=== PATIENT | male | born 1960 | race African-American/Black ===

== ENCOUNTER 2018-11-19 18:53 | Emergency (ER) | payer MEDICAID, OTHER ==
[~2018-11-19] VITALS: Ht 182.9 cm; Wt 81.6 kg
[2018-11-19 19:37] VITALS: BP 124/69
[2018-11-19 19:49] LABS: BASOPHILS # (AUTO) 0.1 /CMM (0.0-0.2); BASOPHILS % (AUTO) 1.2 % (0.0-2.0); EOSINOPHILS % (AUTO) 4.7 % (0.0-6.0); HEMATOCRIT 43 % (39-51); LYMPHOCYTES # (AUTO) 1.6 /CMM (0.8-4.8); LYMPHOCYTES % (AUTO) 35.7 % (20.0-44.0); MEAN CORPUSCULAR HGB CONC 33 g/dl (31.0-36.0); MEAN CORPUSCULAR VOLUME 85 fL (80-96); MONOCYTES # (AUTO) 0.3 /CMM (0.1-1.30); MONOCYTES % (AUTO) 7.8 % (2.0-12.0); NEUTROPHILS # (AUTO) 2.2 /CMM (1.8-8.9); NEUTROPHILS % (AUTO) 50.6 % (43.0-81.0); PLATELET COUNT (AUTO) 260 /CMM (150-450); RED BLOOD CELL COUNT(AUTO) 5.09 MIL/uL (4.5-6.0); WHITE BLOOD COUNT (AUTO) 4.4 K/uL (4.3-11.0)
[2018-11-19 19:51] LABS: APPEARANCE,URINE Clear (CLEAR); BILIRUBIN,URINE Negative (NEGATIVE); BLOOD, URINE Negative Ery/uL (NEGATIVE); COLOR,URINE Yellow (YELLOW); KETONES,URINE Negative (NEGATIVE); LEUKOCYTE ESTERASE ,URINE Negative (NEGATIVE); NITRITE, URINE Negative (NEGATIVE); PROTEIN,URINE Negative (NEGATIVE); UGLUCOSE Negative (NEGATIVE); UROBILINOGEN,URINE 0.2 EU/dL (0.2)
[2018-11-19 19:57] LABS: CALCIUM, SERUM 8.4 mg/dL (8.5-10.1); CARBON DIOXIDE 26 mmol/L (21-32); CHLORIDE 105 mmol/L (98-107); CREATININE 1.3 mg/dL (0.6-1.3); GLUCOSE 128 mg/dL (74-106); POTASSIUM 4.2 mmol/L (3.5-5.1); SODIUM SERUM 142 mmol/L (136-145); UREA NITROGEN, BLOOD 22 mg/dL (7-18)
[2018-11-19 20:10] LABS: ALANINE AMINOTRANSFERASE 41 U/L (12-78); ALKALINE PHOSPHATASE 75 U/L (46-116); ASPARTATE AMINOTRANSFERASE 29 U/L (15-37); BILIRUBIN,TOTAL 0.2 mg/dL (0.2-1.0); TOTAL PROTEIN, SERUM 6.3 g/dL (6.4-8.2)
[2018-11-19 20:13] LABS: ACETAMINOPHEN < 2 ug/ml (10-30); ALCOHOL, BLOOD < 3 mg/dL (0-0); SALICYLATE < 2.8 mg/dL (2.8-20.0)
--- NOTE | 2018-11-19 23:22 | NUR ---
CALLED SPOKE TO [facility]. PLEASE CALL WITH UPDATE ON PATIENT CONDITION. # [phone]. PT WILL WAIT UNTIL 1230 IN THE AFTERNOON FOR OPENING AT [facility].
--- NOTE | 2018-11-20 00:46 | NUR ---
SPOKE WITH INTAKE AT [facility]. AWARE THAT PT LEFT AMA. PT DENIED SI AND HI. AMBULATORY.
--- NOTE | 2018-11-20 00:58 | NUR ---
PT REFUSED TO SIGN AMA PAPERWORK. MD MONET
== END 2018-11-20 01:00 | disposition left against medical advice (07) ==
LOC: ER 18:59
DX: R45.851 Suicidal ideations (principal); Z59.0 Homelessness
CPT/HCPCS: 36415; 80048; 80076; 80305; 80307; 80329; 81001; 85025; 99284; G0480; 81000-TC

== ENCOUNTER 2018-12-07 18:58 | Emergency (ER) | payer MEDICAID ==
[~2018-12-07] VITALS: Ht 175.3 cm; Wt 68.0 kg
[2018-12-07 19:47] VITALS: BP 117/71
--- NOTE | 2018-12-07 19:50 | NUR ---
PT TO ER C/O SI WITH PLAN TO JUMP OFF BRIDGE. SI PRECUATIONS IMPLEMENTED. NO SIGNS OF DISTRESS NOTED. PT VITAL SIGNS STABLE. PT TO ER BED, CHANGED INTO GOWN. WILL CONT TO MONITOR PT.
[2018-12-07] MEDS ORDERED: LORAZEPAM 1 MG TABLET PO ONE (20:00)
[2018-12-07] MEDS ORDERED: OLANZAPINE 5 MG TABLET PO ONE (20:00)
--- NOTE | 2018-12-07 20:03 | NUR ---
URINE COLLECTED AND SENT TO LAB
--- NOTE | 2018-12-07 20:06 | NUR ---
PHLEB AT BEDSIDE FOR LAB DRAW
[2018-12-07] MEDS ORDERED: LORAZEPAM 1 MG TABLET ONE (20:07)
[2018-12-07] MEDS ORDERED: OLANZAPINE 5 MG TABLET ONE (20:07)
--- NOTE | 2018-12-07 20:12 | NUR ---
PT MEDICATED ORDERED. FOOD AND DRINK PROVIDED TO PATIENT.
[2018-12-07 20:13] LABS: BASOPHILS # (AUTO) 0.1 /CMM (0.0-0.2); EOSINOPHILS % (AUTO) 4.3 % (0.0-6.0); HEMATOCRIT 38 % (39-51); HEMOGLOBIN 12.4 g/dL (13.5-17.5); LYMPHOCYTES # (AUTO) 1.5 /CMM (0.8-4.8); LYMPHOCYTES % (AUTO) 26.4 % (20.0-44.0); MEAN CORPUSCULAR HGB CONC 33 g/dl (31.0-36.0); MEAN CORPUSCULAR VOLUME 84 fL (80-96); MONOCYTES # (AUTO) 0.5 /CMM (0.1-1.30); MONOCYTES % (AUTO) 8.8 % (2.0-12.0); NEUTROPHILS # (AUTO) 3.3 /CMM (1.8-8.9); NEUTROPHILS % (AUTO) 59.5 % (43.0-81.0); PLATELET COUNT (AUTO) 326 /CMM (150-450); RED BLOOD CELL COUNT(AUTO) 4.55 MIL/uL (4.5-6.0); WHITE BLOOD COUNT (AUTO) 5.5 K/uL (4.3-11.0)
[2018-12-07 20:14] LABS: APPEARANCE,URINE Clear (CLEAR); BILIRUBIN,URINE Negative (NEGATIVE); BLOOD, URINE Negative Ery/uL (NEGATIVE); COLOR,URINE Dark (YELLOW); KETONES,URINE Negative (NEGATIVE); LEUKOCYTE ESTERASE ,URINE Negative (NEGATIVE); NITRITE, URINE Negative (NEGATIVE); PH,URINE 5.5 (5.0-8.0); PROTEIN,URINE Trace mg/dl (NEGATIVE); UGLUCOSE Negative (NEGATIVE); UROBILINOGEN,URINE 0.2 EU/dL (0.2)
[2018-12-07 20:21] LABS: CALCIUM, SERUM 8.6 mg/dL (8.5-10.1); CARBON DIOXIDE 27 mmol/L (21-32); CHLORIDE 104 mmol/L (98-107); CREATININE 1.4 mg/dL (0.6-1.3); GLUCOSE 110 mg/dL (74-106); POTASSIUM 4.1 mmol/L (3.5-5.1); SODIUM SERUM 139 mmol/L (136-145); UREA NITROGEN, BLOOD 31 mg/dL (7-18)
[2018-12-07 20:27] LABS: ACETAMINOPHEN < 2 ug/ml (10-30); ALANINE AMINOTRANSFERASE 36 U/L (12-78); ALBUMIN 3.1 g/dL (3.4-5.0); ALCOHOL, BLOOD < 3 mg/dL (0-0); ALKALINE PHOSPHATASE 89 U/L (46-116); ASPARTATE AMINOTRANSFERASE 36 U/L (15-37); BILIRUBIN,DIRECT 0.1 mg/dL (0.0-0.2); BILIRUBIN,TOTAL 0.4 mg/dL (0.2-1.0); SALICYLATE 0.9 mg/dL (2.8-20.0); TOTAL PROTEIN, SERUM 6.6 g/dL (6.4-8.2)
--- NOTE | 2018-12-07 23:55 | NUR ---
Art case management rn at bedside for eval.
--- NOTE | 2018-12-08 02:28 | NUR ---
PT ACCEPTED TO [facility] BY DR SOL. # FOR REPORT [phone]
--- NOTE | 2018-12-08 02:42 | NUR ---
[facility] TRIP [id number] ETA [id number]
--- NOTE | 2018-12-08 04:50 | NUR ---
DAVID AT BEDSIDE FOR TRANSPORT TO [facility].
== END 2018-12-08 05:08 ==
LOC: ER 18:59
DX: R45.851 Suicidal ideations (principal); R79.89 Other specified abnormal findings of blood chemistry; Z59.0 Homelessness
CPT/HCPCS: 36415; 80048; 80076; 80305; 80307; 80329; 81001; 85025; 99285; G0480; 81000-TC

== ENCOUNTER 2018-12-13 22:33 | Emergency (ER) | payer MEDICAID, OTHER ==
[~2018-12-13] VITALS: Ht 182.9 cm; Wt 68.0 kg
--- NOTE | 2018-12-13 22:42 | NUR ---
CALLED PT IN [place], NO RESPONSE.
--- NOTE | 2018-12-13 22:59 | NUR ---
PT BIBSELF C/O SI WITH PLAN TO RUN INTO TRAFFIC. ALSO C/O AUDITORY HALLUCINATIONS. DENIES HI. PT AAOX4. RESPIRATIONS EVEN AND UNLABORED. SKIN INTACT. ABLE TO AMBULATE WITH STEADY GAIT. NO ACUTE DISTRESS NOTED AT THIS TIME.
--- NOTE | 2018-12-13 23:00 | NUR ---
VP ACCOUNT DIRECTOR AT BEDSIDE FOR BLOOD DRAW
[2018-12-13 23:06] LABS: BASOPHILS # (AUTO) 0.1 /CMM (0.0-0.2); BASOPHILS % (AUTO) 1.4 % (0.0-2.0); EOSINOPHILS % (AUTO) 5.8 % (0.0-6.0); HEMATOCRIT 39 % (39-51); HEMOGLOBIN 12.8 g/dL (13.5-17.5); LYMPHOCYTES # (AUTO) 1.8 /CMM (0.8-4.8); LYMPHOCYTES % (AUTO) 30.8 % (20.0-44.0); MEAN CORPUSCULAR HGB CONC 33 g/dl (31.0-36.0); MEAN CORPUSCULAR VOLUME 84 fL (80-96); MONOCYTES # (AUTO) 0.5 /CMM (0.1-1.30); MONOCYTES % (AUTO) 8.9 % (2.0-12.0); NEUTROPHILS # (AUTO) 3.1 /CMM (1.8-8.9); NEUTROPHILS % (AUTO) 53.1 % (43.0-81.0); PLATELET COUNT (AUTO) 304 /CMM (150-450); RED BLOOD CELL COUNT(AUTO) 4.63 MIL/uL (4.5-6.0); WHITE BLOOD COUNT (AUTO) 5.8 K/uL (4.3-11.0)
[2018-12-13 23:18] LABS: ALBUMIN 3.2 g/dL (3.4-5.0); BILIRUBIN,DIRECT 0.1 mg/dL (0.0-0.2); BILIRUBIN,TOTAL 0.3 mg/dL (0.2-1.0); CALCIUM, SERUM 8.5 mg/dL (8.5-10.1); CREATININE 1.4 mg/dL (0.6-1.3); POTASSIUM 4.1 mmol/L (3.5-5.1); TOTAL PROTEIN, SERUM 6.6 g/dL (6.4-8.2)
[2018-12-13] MEDS ORDERED: OLANZAPINE 5 MG TABLET ONE (23:26)
[2018-12-13] MEDS ORDERED: LORAZEPAM 1 MG TABLET ONE (23:26)
[2018-12-13 23:30] LABS: SALICYLATE 1.4 mg/dL (2.8-20.0)
[2018-12-13] MEDS ORDERED: OLANZAPINE 5 MG TABLET PO ONE (23:30)
[2018-12-13] MEDS ORDERED: LORAZEPAM 1 MG TABLET PO ONE (23:30)
[2018-12-14 00:27] LABS: APPEARANCE,URINE Clear (CLEAR); BILIRUBIN,URINE Negative (NEGATIVE); BLOOD, URINE Negative Ery/uL (NEGATIVE); COLOR,URINE Yellow (YELLOW); KETONES,URINE Negative (NEGATIVE); LEUKOCYTE ESTERASE ,URINE Negative (NEGATIVE); NITRITE, URINE Negative (NEGATIVE); PH,URINE 5.5 (5.0-8.0); PROTEIN,URINE Negative (NEGATIVE); UGLUCOSE Negative (NEGATIVE); UROBILINOGEN,URINE 0.2 EU/dL (0.2)
--- NOTE | 2018-12-14 01:04 | NUR ---
ART, MANAGER BAKERY AT BEDSIDE FOR PSYCH EVAL.
--- NOTE | 2018-12-14 01:45 | NUR ---
pt given sandwich and juice, sitting up in bed, eating w/ no aspiration of food noted.
--- NOTE | 2018-12-14 04:02 | NUR ---
PT RESTING COMFORTABLY IN BED. VITAL SIGNS STABLE. NO ACUTE DISTRESS NOTED AT THIS TIME. WILL CONTINUE TO MONITOR
--- NOTE | 2018-12-14 06:08 | NUR ---
PT CONTINUES TO SLEEP W/ RESP EVEN & UNLABORED, BED LOW TO GROUND W/ SIDERAILS UP FOR SAFETY, LIGHTS DIMMED FOR COMFORT. AWAITING PSYCH EVAL IN AM ONCE SOBER FOR EVAL.
--- NOTE | 2018-12-14 07:20 | NUR ---
PT SLEEPING, EASILY AROUSABLE ON MONITOR. VSS. WILL CONTINUE TO MONITOR.
--- NOTE | 2018-12-14 07:23 | NUR ---
CALLED FOR FOOD TRAY
--- NOTE | 2018-12-14 07:48 | NUR ---
DR FOSS AT BEDSIDE FOR EVAL.
--- NOTE | 2018-12-14 07:53 | NUR ---
CALLED ART [phone]
--- NOTE | 2018-12-14 12:15 | NUR ---
CALLED ART, ETA 1 HR
--- NOTE | 2018-12-14 13:25 | NUR ---
PT RESTING, VERBALLY RESPONSIVE. STABLE VITALS. AWAITING PSYCH RE EVAL.
--- NOTE | 2018-12-14 13:35 | NUR ---
ART, ASSOCIATE PUBLISHER AT BEDSIDE FOR EVAL
--- NOTE | 2018-12-14 14:13 | NUR ---
CALLED DIETARY FOR FOOD TRAY
[2018-12-14 14:35] VITALS: BP 121/74
--- NOTE | 2018-12-14 16:51 | NUR ---
TRANSPORTED TO [facility]. STABLE CONDITION.
== END 2018-12-14 16:56 ==
LOC: ER 22:38
DX: R45.851 Suicidal ideations (principal); Z59.0 Homelessness
CPT/HCPCS: 36415; 80048; 80076; 80305; 80307; 80329; 81001; 85025; 99285; G0480; 81000-TC

== ENCOUNTER 2019-05-22 00:23 | Emergency (ER) | payer OTHER ==
[~2019-05-22] VITALS: Ht 182.9 cm; Wt 80.7 kg
--- NOTE | 2019-05-22 00:30 | NUR ---
Pt to er c/o suicidal ideations with plan to jump off bridge. No immediate signs of distress noted. pt vital signs stable. Pt denies any medical complaint. Suicide precautions implemented. Belongings removed from room. Pt changed to gown. Will cont to monitor pt.
[2019-05-22 01:13] LABS: BASOPHILS # (AUTO) 0.1 /CMM (0.0-0.2); BASOPHILS % (AUTO) 1.3 % (0.0-2.0); EOSINOPHILS % (AUTO) 1.8 % (0.0-6.0); HEMATOCRIT 37 % (39-51); HEMOGLOBIN 12.1 g/dL (13.5-17.5); LYMPHOCYTES # (AUTO) 1.3 /CMM (0.8-4.8); LYMPHOCYTES % (AUTO) 22.7 % (20.0-44.0); MEAN CORPUSCULAR HGB CONC 33 g/dl (31.0-36.0); MEAN CORPUSCULAR VOLUME 82 fL (80-96); MONOCYTES # (AUTO) 0.3 /CMM (0.1-1.30); MONOCYTES % (AUTO) 5.9 % (2.0-12.0); NEUTROPHILS % (AUTO) 68.3 % (43.0-81.0); PLATELET COUNT (AUTO) 261 /CMM (150-450); RED BLOOD CELL COUNT(AUTO) 4.52 MIL/uL (4.5-6.0); WHITE BLOOD COUNT (AUTO) 5.9 K/uL (4.3-11.0)
[2019-05-22 01:20] LABS: CARBON DIOXIDE 31 mmol/L (21-32); CHLORIDE 105 mmol/L (98-107); CREATININE 1.3 mg/dL (0.6-1.3); GLUCOSE 92 mg/dL (74-106); SODIUM SERUM 141 mmol/L (136-145); UREA NITROGEN, BLOOD 18 mg/dL (7-18)
[2019-05-22 01:36] LABS: ACETAMINOPHEN 0 ug/ml (10-30); ALANINE AMINOTRANSFERASE 38 U/L (12-78); ALBUMIN 3.3 g/dL (3.4-5.0); ALCOHOL, BLOOD < 3 mg/dL (0-0); ALKALINE PHOSPHATASE 65 U/L (46-116); ASPARTATE AMINOTRANSFERASE 66 U/L (15-37); BILIRUBIN,DIRECT 0.1 mg/dL (0.0-0.2); BILIRUBIN,TOTAL 0.4 mg/dL (0.2-1.0); SALICYLATE 1.6 mg/dL (2.8-20.0); TOTAL PROTEIN, SERUM 6.6 g/dL (6.4-8.2)
--- NOTE | 2019-05-22 06:01 | NUR ---
Pt sleeping in [facility]. No signs of distress noted. Will cont to monitor pt.
--- NOTE | 2019-05-22 08:25 | NUR ---
RAJ contacted Eliot at [facility] regarding bed availability. Eliot will follow up with RAJ in a few minutes.
--- NOTE | 2019-05-22 08:40 | NUR ---
RAJ received call from [facility] intake informing RAJ that pt. has been accepted to [place]. Accepting Dr. Lorenzo/ Dr. Hilton. Per intake [facility] JANETH Zavala has been notified for report. RAJ contacted TAMRA Chaudhari in ED who confirmed that report has been given by JANETH Zavala.
--- NOTE | 2019-05-22 08:42 | NUR ---
report given to penny at [facility]. awaiting transport ambulance.
--- NOTE | 2019-05-22 08:45 | NUR ---
CALLED [facility] 0930 ETA. TRIP # [id number]
[2019-05-22 10:30] VITALS: BP 135/77
--- NOTE | 2019-05-22 10:30 | NUR ---
pt transported to [facility]. stable condition.
== END 2019-05-22 10:30 ==
LOC: ER 00:27
DX: F32.9 Major depressive disorder, single episode, unspecified (principal); R45.851 Suicidal ideations; F20.9 Schizophrenia, unspecified; F14.10 Cocaine abuse, uncomplicated; Z59.0 Homelessness
CPT/HCPCS: 36415; 80048; 80076; 80305; 80307; 80329; 85025; 99285; G0480

== ENCOUNTER 2020-01-09 19:28 | Emergency (ER) | payer OTHER ==
[~2020-01-09] VITALS: Ht 182.9 cm; Wt 80.7 kg
--- NOTE | 2020-01-09 20:02 | NUR ---
PT BIBSELF C/O SUICIDAL IDEATION WITH PLAN TO RUN INTO TRAFFIC. PT DENIES HI/HALLUCINATIONS AT THIS TIME. PT AAOX4. CALM AND COOPERATIVE. VITAL SIGNS STABLE. AMBULATORY WITH STEADY GAIT. SKIN WARM AND INTACT. NO ACUTE DISTRESS NOTED AT THIS TIME. BELONGINGS COLLECTED AND PLACED IN PATIENT LOCKER. PT PLACED IN GOWN. SITTER AT BEDSIDE. WILL CONTINUE TO MONITOR
--- NOTE | 2020-01-09 20:09 | NUR ---
INTERNAL COMMUNICATIONS INTERN AT BEDSIDE FOR LABS
[2020-01-09 20:11] LABS: BASOPHILS % (AUTO) 1.2 % (0.0-2.0); EOSINOPHILS % (AUTO) 5.2 % (0.0-6.0); HEMATOCRIT 45 % (39-51); HEMOGLOBIN 14.3 g/dL (13.5-17.5); LYMPHOCYTES # (AUTO) 1.4 /CMM (0.8-4.8); LYMPHOCYTES % (AUTO) 34.3 % (20.0-44.0); MEAN CORPUSCULAR HGB CONC 32 g/dl (31.0-36.0); MEAN CORPUSCULAR VOLUME 84 fL (80-96); MONOCYTES # (AUTO) 0.3 /CMM (0.1-1.30); MONOCYTES % (AUTO) 6.4 % (2.0-12.0); NEUTROPHILS # (AUTO) 2.2 /CMM (1.8-8.9); NEUTROPHILS % (AUTO) 52.9 % (43.0-81.0); PLATELET COUNT (AUTO) 272 /CMM (150-450); RED BLOOD CELL COUNT(AUTO) 5.29 MIL/uL (4.5-6.0); WHITE BLOOD COUNT (AUTO) 4.1 K/uL (4.3-11.0)
[2020-01-09 20:20] LABS: CALCIUM, SERUM 8.6 mg/dL (8.5-10.1); CARBON DIOXIDE 33 mmol/L (21-32); CHLORIDE 105 mmol/L (98-107); CREATININE 1.8 mg/dL (0.6-1.3); GLUCOSE 97 mg/dL (74-106); POTASSIUM 4.4 mmol/L (3.5-5.1); SODIUM SERUM 140 mmol/L (136-145); UREA NITROGEN, BLOOD 15 mg/dL (7-18)
[2020-01-09 20:25] LABS: ALANINE AMINOTRANSFERASE 39 U/L (12-78); ALBUMIN 3.1 g/dL (3.4-5.0); ALCOHOL, BLOOD < 3 mg/dL (0-0); ALKALINE PHOSPHATASE 63 U/L (46-116); ASPARTATE AMINOTRANSFERASE 28 U/L (15-37); BILIRUBIN,DIRECT 0.1 mg/dL (0.0-0.2); BILIRUBIN,TOTAL 0.2 mg/dL (0.2-1.0); TOTAL PROTEIN, SERUM 6.2 g/dL (6.4-8.2)
[2020-01-09 20:26] LABS: ACETAMINOPHEN < 2 ug/ml (10-30); SALICYLATE < 2.8 mg/dL (2.8-20.0)
--- NOTE | 2020-01-09 20:44 | NUR ---
urine sent to lab
--- NOTE | 2020-01-10 00:15 | NUR ---
PT ACCEPTED TO [facility] ACCEPTING MD: DR. SOL UNIT 2 NUMBER FOR REPORT: [phone]
--- NOTE | 2020-01-10 00:25 | NUR ---
CALLED [facility] FOR TRANSPORTATION. WILL CALL BACK WITH ETA. CONFIRMATION #[id number]
--- NOTE | 2020-01-10 02:44 | NUR ---
REPORT GIVEN TO JANETH GRAY FROM [facility]
--- NOTE | 2020-01-10 02:45 | NUR ---
REPORT GIVEN TO [facility] FOR TRANSPORTATION [facility]
[2020-01-10 02:46] VITALS: BP 130/70
== END 2020-01-10 02:52 | disposition short-term general hospital (02) ==
LOC: ER 19:30
DX: F31.9 Bipolar disorder, unspecified (principal); R45.851 Suicidal ideations; F29 Unspecified psychosis not due to a substance or known physiological condition; F12.10 Cannabis abuse, uncomplicated; F20.0 Paranoid schizophrenia; Z59.0 Homelessness
CPT/HCPCS: 36415; 80048; 80076; 80305; 80307; 80329; 85025; 99285; G0480

== ENCOUNTER 2022-04-12 20:07 | Emergency (ER) | payer OTHER ==
--- NOTE | 2022-04-12 20:25 | NUR ---
[facility] CALLED TO TRIAGE
--- NOTE | 2022-04-12 20:47 | NUR ---
PATIENT CALLED TO TRIAGE, WANTS TO SMOKE, BEFORE BEING SEEN
== END 2022-04-12 20:50 | disposition left against medical advice (07) ==
LOC: ER 20:07
DX: Z53.21 Procedure and treatment not carried out due to patient leaving prior to being seen by health care provider (principal)